=== PATIENT | male | born 1965 | race Caucasian/White ===

== ENCOUNTER 2017-06-30 12:30 | Day surgery (SDC) | payer BC ==
[2017-06-30] MEDS ORDERED: Albuterol/Ipratropium 3.0-0.5 MG/3 ML Neb Soln NEB ONE ×2 (13:30→22:38)
--- NOTE | 2017-06-30 13:31 | EDM.PDOC ---
ED HPI GENERAL MEDICAL PROBLEM - General Chief Complaint: Abdominal Pain Stated Complaint: BACK PAIN, STOMACH PAIN AND BLOATING Time Seen by Provider: 06/30/17 12:58 Source of Information: Reports: Patient History Limitations: Reports: No Limitations - History of Present Illness INITIAL COMMENTS - FREE TEXT/NARRATIVE: 51 y.o.w.m with metabolic syndrome, H/.O COPD, HTNcame to the ed by PC due to worsening abd. pain with distension, worse pain at his RUQ of his abdomen. No Trauma, no prev abdominal surgeries. No N/V/D, dizziness, no ather acute medical issues. BP 158/85 Temp 36.8 RR 18 Pulse ox 98% on RA, Pulse 93 BPM Onset Date: 06/30/17 Onset Time: 04:00 Duration: Hour(s):, Getting Worse, Intermittent Location: Reports: Abdomen (RUQ of abdomen) Quality: Reports: Ache, Burning, Dull, Pressure, Stabbing, Throbbing Severity: Moderate Improves with: Reports: Rest Worsens with: Reports: Movement Context: Reports: Other (obesity) Associated Symptoms: Reports: Shortness of Breath (H/O COPD, refused Tx) Upper Abdominal Pain Score (Numeric/FACES): 6 - Related Data Allergies Allergy/AdvReac Type Severity Reaction Status Date / Time No Known Allergies Allergy Verified 06/30/17 12:50 Home Meds: Home Meds Benazepril HCl [Lotensin] 40 mg PO DAILY 12/02/12 [History] amLODIPine Besylate [Norvasc] 10 mg PO DAILY 12/02/12 [History] Hydrochlorothiazide 12.5 mg PO DAILY 11/29/15 [History] Albuterol Sulfate [Proair Hfa] 2 puff IH Q4H PRN 11/30/15 [History] Aspirin [Halfprin] 81 mg PO DAILY 11/30/15 [History] Multivitamin [Daily Bryan] 1 tab PO DAILY 11/30/15 [History] Fluticasone/Salmeterol [Advair 250-50 Diskus] 1 puff IH BID 30 Days disk.w.dev 12/05/15 [Rx] Furosemide [Lasix] 40 mg PO DAILY 30 Days tablet 12/05/15 [Rx] Metoprolol Succinate 100 mg PO ASDIRECTED 06/30/17 [History] Past Medical History Cardiovascular History: Reports: Hypertension, Other (See Below) Respiratory History: Reports: COPD, Pneumonia, Recurrent, SOB Gastrointestinal History: Reports: Hiatal Hernia Endocrine/Metabolic History: Reports: Obesity/BMI 30+ - Infectious Disease History Infectious Disease History: Reports: Chicken Pox, Measles, Mumps - Past Surgical History GI Surgical History: Reports: Hernia, Abdominal Social & Family History - Family History Family Medical History: Unobtainable - Tobacco Use Smoking Status *Q: Former Smoker Years of Tobacco use: 25 Packs/Tins Daily: 1.5 Used Tobacco, but Quit: Yes Month/Year Tobacco Last Used: mar 2016 Second Hand Smoke Exposure: Yes - Caffeine Use Caffeine Use: Reports: Coffee - Alcohol Use Days Per Week of Alcohol Use: 2 Number of Drinks Per Day: 3 Total Drinks Per Week: 6 - Recreational Drug Use Recreational Drug Use: No ED ROS GENERAL - Review of Systems Review Of Systems: See Below Constitutional: Reports: No Symptoms HEENT: Reports: No Symptoms Respiratory: Reports: Shortness of Breath (now baseline), Wheezing Cardiovascular: Reports: Blood Pressure Problem Endocrine: Reports: No Symptoms GI/Abdominal: Reports: Abdominal Pain (RUQ of abdomen) : Reports: No Symptoms Musculoskeletal: Reports: No Symptoms Skin: Reports: No Symptoms Neurological: Reports: No Symptoms Psychiatric: Reports: No Symptoms Hematologic/Lymphatic: Reports: No Symptoms Immunologic: Reports: No Symptoms ED EXAM, GI/ABD - Physical Exam Exam: See Below Exam Limited By: No Limitations General Appearance: Alert, WD/WN, Mild Distress, Obese (morbid) Eyes: Bilateral: Normal Appearance Ears: Normal External Exam Nose: Normal Inspection Throat/Mouth: Normal Inspection Head: Atraumatic, Normocephalic Neck: Normal Inspection Respiratory/Chest: No Respiratory Distress, Decreased Breath Sounds, Wheezing Cardiovascular: Normal Peripheral Pulses GI/Abdominal Exam: Guarding, Rigid (RUQ of abdomen), Tender (Male) Exam: No Hernia Rectal (Males) Exam: Deferred Back Exam: Normal Inspection Extremities: Normal Inspection Neurological: Alert, Oriented, CN II-XII Intact, Normal Cognition, Normal Gait Psychiatric: Normal Affect, Normal Mood Skin Exam: Warm, Dry, Intact, Normal Color, No Rash Lymphatic: No Adenopathy EKG INTERPRETATION EKG Date: 06/30/17 Time: 13:40 Rhythm: NSR Rate (Beats/Min): 92 [place]: Normal P-Wave: Present (inverted,) QRS: Normal ST-T: Normal QT: Normal Comparison: No Change Course - Vital Signs Text/Narrative:: 51 y.o.w.m with metabolic syndrome, H/.O COPD, HTNcame to the ed by PC due to worsening abd. pain with distension, worse pain at his RUQ of his abdomen. No Trauma, no prev abdominal surgeries. No N/V/D, dizziness, no ather acute medical issues. BP 158/85 Temp 36.8 RR 18 Pulse ox 98% on RA, Pulse 93 BPM PE: Morbid obese 51 Y.O W M with h/o HTN and copd, came to the ed with RUQ abd. pain with pos García sign Imaging: U/S acute cholecystitis, CT abd/pelvis: Cholelithiais, Distended Gall bladder with GBW thickening Labs: WBC 15.6 , BUN 30 Cr 1.6 Trop 1.017 GFR 43 Impression: Acute cholecystitis, COPD, HTN, morbid obesity, chronic legedema, CRI Tx: Refused pain meds, Zosyn 3.375 gm i.v. Pt refuesed a Duoneb 5.49 pm Consultation: Dr. Dillard, Surgeon: Will see pt in the ED Plan: Cholecystectomy Last Recorded V/S: Last Vital Signs Temp 36.7 C 06/30/17 12:58 Pulse 97 06/30/17 16:54 Resp 20 06/30/17 16:54 BP 151/86 H 06/30/17 16:54 Pulse Ox 100 06/30/17 16:54 - Orders/Labs/Meds Orders: Active Orders 24 hr Category Date Time Status Abdomen Ltd [US] Stat Exams 06/30/17 14:34 Taken Abdomen Pelvis w Cont [CT] Stat Exams 06/30/17 15:19 Taken Abdomen Series w Chest 1V [CR] Stat Exams 06/30/17 13:30 Taken INR,PT,PROTHROMBIN TIME [COAG] Stat Lab 06/30/17 14:05 Received PRO B-TYPE NATRIUR PEPT,BNPPRO [CHEM] Stat Lab 06/30/17 14:05 Received UA W/MICROSCOPIC [URIN] Stat Lab 06/30/17 13:56 Ordered Diatrizoate Sirena/Diatrizoate Na [Gastrografin 37%] Med 06/30/17 15:45 Active 30 ml PO . DIRECTED Sodium Chloride 0.9% [Normal Saline] 1,000 ml Med 06/30/17 18:00 Active IV ASDIRECTED Sodium Chloride 0.9% [Saline Flush] Med 06/30/17 17:43 Active 10 ml FLUSH ASDIRECTED PRN Saline Lock Insert [OM.PC] Routine Oth 06/30/17 17:43 Ordered EKG 12 Lead [EK] Routine Ther 06/30/17 13:30 Ordered Medication Orders Diatrizoate Meglum/Diatrizoate Sod (Gastrografin 37%) 30 ml PO . DIRECTED OLIVA Last Admin: 06/30/17 16:09 Dose: 30 ml Sodium Chloride (Normal Saline) 1,000 mls @ 125 mls/hr IV ASDIRECTED OLIVA Last Admin: 06/30/17 17:57 Dose: 125 mls/hr Sodium Chloride (Saline Flush) 10 ml FLUSH ASDIRECTED PRN PRN Reason: Keep Vein Open Last Admin: 06/30/17 15:00 Dose: 10 ml Labs: Laboratory Tests 06/30/17 06/30/17 06/30/17 Range/Units 13:56 14:05 14:05 WBC 14.1 H (4.5-12.0) X10-3/uL RBC 3.99 L (4.30-5.75) x10(6)uL Hgb 12.4 (11.5-15.5) g/dL Hct 35.4 D (30.0-51.3) % MCV 88.9 (80-96) fL MCH 31.2 (27.7-33.6) pg MCHC 35.1 (32.2-35.4) g/dL RDW 12.5 (11.5-15.5) % Plt Count 194 (125-369) X10(3)uL MPV 7.9 (7.4-10.4) fL Add Manual Diff Yes Neutrophils % (Manual) 81 (46-82) % Band Neutrophils % 3 (0-6) % Lymphocytes % (Manual) 10 L (13-37) % Monocytes % (Manual) 6 (4-12) % Sodium 138 (135-145) mmol/L Potassium 3.9 (3.5-5.3) mmol/L Chloride 100 (100-110) mmol/L Carbon Dioxide 28 (21-32) mmol/L BUN 30 H (7-18) mg/dL Creatinine 1.6 H (0.70-1.30) mg/dL Est Cr Clr Drug Dosing 58.83 mL/min Estimated GFR (MDRD) 46 L (>60) BUN/Creatinine Ratio 18.8 (9-20) Glucose 155 H (80-116) mg/dL Lactic Acid (0.4-2.2) mmol/L Calcium 9.0 (8.6-10.2) mg/dL Total Bilirubin 0.4 (0.1-1.3) mg/dL Direct Bilirubin 0.12 (0.10-0.20) mg/dL AST 21 (5-25) IU/L ALT 39 H (12-36) U/L Alkaline Phosphatase 101 (56-112) IU/L Troponin I (<0.017-0.056) ng/mL Total Protein 7.8 (6.0-8.0) g/dL Albumin 3.6 (3.5-5.2) g/dL Amylase 53 (25-115) U/L Urine Color Yellow (YELLOW) Urine Appearance Slightly cloudy (CLEAR) Urine pH 6.0 (5.0-6.5) Ur Specific [place] 1.015 (1.010-1.025) Urine Protein Negative (NEGATIVE) mg/dL Urine Glucose (UA) Normal (NEGATIVE) mg/dL Urine Ketones Negative (NEGATIVE) mg/dL Urine Occult Blood Negative (NEGATIVE) Urine Nitrite Negative (NEGATIVE) Urine Bilirubin Negative (NEGATIVE) Urine Urobilinogen 1 H (NEGATIVE) mg/dL Ur Leukocyte Esterase Negative (NEGATIVE) Urine WBC 0-5 (0) Ur Squamous Epith Cells Few H (NS,R,O) Urine Bacteria Few H (NS) 06/30/17 06/30/17 Range/Units 14:05 14:05 WBC (4.5-12.0) X10-3/uL RBC (4.30-5.75) x10(6)uL Hgb (11.5-15.5) g/dL Hct (30.0-51.3) % MCV (80-96) fL MCH (27.7-33.6) pg MCHC (32.2-35.4) g/dL RDW (11.5-15.5) % Plt Count (125-369) X10(3)uL MPV (7.4-10.4) fL Add Manual Diff Neutrophils % (Manual) (46-82) % Band Neutrophils % (0-6) % Lymphocytes % (Manual) (13-37) % Monocytes % (Manual) (4-12) % Sodium (135-145) mmol/L Potassium (3.5-5.3) mmol/L Chloride (100-110) mmol/L Carbon Dioxide (21-32) mmol/L BUN (7-18) mg/dL Creatinine (0.70-1.30) mg/dL Est Cr Clr Drug Dosing mL/min Estimated GFR (MDRD) (>60) BUN/Creatinine Ratio (9-20) Glucose (80-116) mg/dL Lactic Acid 0.9 (0.4-2.2) mmol/L Calcium (8.6-10.2) mg/dL Total Bilirubin (0.1-1.3) mg/dL Direct Bilirubin (0.10-0.20) mg/dL AST (5-25) IU/L ALT (12-36) U/L Alkaline Phosphatase (56-112) IU/L Troponin I < 0.017 L (<0.017-0.056) ng/mL Total Protein (6.0-8.0) g/dL Albumin (3.5-5.2) g/dL Amylase (25-115) U/L Urine Color (YELLOW) Urine Appearance (CLEAR) Urine pH (5.0-6.5) Ur Specific [place] (1.010-1.025) Urine Protein (NEGATIVE) mg/dL Urine Glucose (UA) (NEGATIVE) mg/dL Urine Ketones (NEGATIVE) mg/dL Urine Occult Blood (NEGATIVE) Urine Nitrite (NEGATIVE) Urine Bilirubin (NEGATIVE) Urine Urobilinogen (NEGATIVE) mg/dL Ur Leukocyte Esterase (NEGATIVE) Urine WBC (0) Ur Squamous Epith Cells (NS,R,O) Urine Bacteria (NS) Meds: Medications Generic Name Dose Route Start Last Admin Trade Name Freq PRN Reason Stop Dose Admin Diatrizoate Meglum/Diatrizoate Sod 30 ml 06/30/17 15:45 06/30/17 16:09 Gastrografin 37% PO 30 ml . DIRECTED OLIVA Administration Sodium Chloride 1,000 mls @ 125 mls/hr 06/30/17 18:00 06/30/17 17:57 Normal Saline IV 125 mls/hr ASDIRECTED OLIVA Administration Sodium Chloride 10 ml 06/30/17 17:43 06/30/17 15:00 Saline Flush FLUSH 10 ml ASDIRECTED PRN Administration Keep Vein Open Discontinued Medications Generic Name Dose Route Start Last Admin Trade Name Freq PRN Reason Stop Dose Admin Albuterol/Ipratropium 3 ml 06/30/17 13:30 06/30/17 13:49 Duoneb 3.0-0.5 Mg/3 Ml NEB 06/30/17 13:31 Not Given ONETIME ONE Albuterol/Ipratropium Confirm 06/30/17 13:33 06/30/17 13:49 Duoneb 3.0-0.5 Mg/3 Ml Administered 06/30/17 13:34 Not Given Dose 3 ml .ROUTE .STK-MED ONE Piperacillin Sod/Tazobactam 50 mls @ 100 mls/hr 06/30/17 17:52 06/30/17 18:03 Sod 3.375 gm/ Sodium Chloride IV 06/30/17 18:21 100 mls/hr ONETIME STA Administration Iopamidol 100 ml 06/30/17 15:32 06/30/17 16:09 Isovue-370 (76%) IV 06/30/17 15:33 100 ml . DIRECTED ONE Administration Departure - Departure Time of Disposition: 19:10 Disposition: Refer to Observation Condition: Fair Clinical Impression: Acute cholecystitis - Discharge Information - My Orders Last 24 Hours: My Active Orders 06/30/17 13:30 Abdomen Series w Chest 1V [CR] Stat EKG 12 Lead [EK] Routine 06/30/17 13:56 UA W/MICROSCOPIC [URIN] Stat 06/30/17 14:05 INR,PT,PROTHROMBIN TIME [COAG] Stat PRO B-TYPE NATRIUR PEPT,BNPPRO [CHEM] Stat 06/30/17 14:34 Abdomen Ltd [US] Stat 06/30/17 15:19 Abdomen Pelvis w Cont [CT] Stat 06/30/17 15:45 Diatrizoate Sirena/Diatrizoate Na [Gastrografin 37%] 30 ml PO . DIRECTED 06/30/17 17:43 Sodium Chloride 0.9% [Saline Flush] 10 ml FLUSH ASDIRECTED PRN Saline Lock Insert [OM.PC] Routine 06/30/17 18:00 Sodium Chloride 0.9% [Normal Saline] 1,000 ml IV ASDIRECTED - Assessment/Plan Last 24 Hours: My Active Orders 06/30/17 13:30 Abdomen Series w Chest 1V [CR] Stat EKG 12 Lead [EK] Routine 06/30/17 13:56 UA W/MICROSCOPIC [URIN] Stat 06/30/17 14:05 INR,PT,PROTHROMBIN TIME [COAG] Stat PRO B-TYPE NATRIUR PEPT,BNPPRO [CHEM] Stat 06/30/17 14:34 Abdomen Ltd [US] Stat 06/30/17 15:19 Abdomen Pelvis w Cont [CT] Stat 06/30/17 15:45 Diatrizoate Sirena/Diatrizoate Na [Gastrografin 37%] 30 ml PO . DIRECTED 06/30/17 17:43 Sodium Chloride 0.9% [Saline Flush] 10 ml FLUSH ASDIRECTED PRN Saline Lock Insert [OM.PC] Routine 06/30/17 18:00 Sodium Chloride 0.9% [Normal Saline] 1,000 ml IV ASDIRECTED
[2017-06-30] MEDS ORDERED: Albuterol/Ipratropium 3.0-0.5 MG/3 ML Neb Soln ONE (13:33)
[2017-06-30] MEDS ORDERED: Iopamidol 755 Mg/ML 100 ML Bottle IV ONE (15:32)
[2017-06-30] MEDS ORDERED: Diatrizoate Meglumine/Diatrizoate Sodium 37% 30 ML Bottle PO SCH (15:45)
[2017-06-30] MEDS ORDERED: Sodium Chloride 0.9% 10 ML Syringe FLUSH PRN ×2 (17:43→19:15)
[2017-06-30] MEDS ORDERED: Piperacillin/Tazobactam 3.375 GM in Sodium Chloride 0.9% 50 ML IV STA (17:52)
[2017-06-30] MEDS ORDERED: Sodium Chloride 0.9% 1,000 ML IV SCH (18:00)
[2017-06-30] MEDS ORDERED: Lactated Ringers 1,000 ML IV SCH (19:15)
[2017-06-30] MEDS ORDERED: Rocuronium 100 MG/10 ML MDV IV ONE (19:41)
[2017-06-30] MEDS ORDERED: fentaNYL 100 MCG/2 ML SDV IV ONE (19:41)
[2017-06-30] MEDS ORDERED: Neostigmine Methylsulfate 10 MG/10 ML MDV IVPUSH ONE (19:41)
[2017-06-30] MEDS ORDERED: Albuterol 8 GM Inhaler INH ONE (19:41)
[2017-06-30] MEDS ORDERED: Glycopyrrolate 0.2 MG/ML 5 ML MDV IV ONE (19:41)
[2017-06-30] MEDS ORDERED: Propofol 200 MG/20 ML SDV IV ONE (19:41)
[2017-06-30] MEDS ORDERED: Metoprolol Tartrate 5 MG/5 ML SDV IV ONE (19:41)
[2017-06-30] MEDS ORDERED: Ondansetron 4 MG/2 ML SDV IVPUSH ONE (19:41)
[2017-06-30] MEDS ORDERED: Succinylcholine 200 MG/10 ML MDV IV ONE (19:41)
[2017-06-30] MEDS ORDERED: Lidocaine 2% 100 MG/5 ML Syringe IVPUSH ONE (19:41)
[2017-06-30] MEDS ORDERED: Lactated Ringers 1,000 ML IV ONE (19:41)
[2017-06-30] MEDS ORDERED: Ketamine 500 mg/10 ML MDV IV ONE (19:41)
--- NOTE | 2017-06-30 19:45 | HP ---
ADMISSION DATE: 06/30/2017 HISTORY: This 51-year-old male presented to the emergency room today with symptoms of right upper quadrant abdominal pain. He says he has developed this morning. He was seen in the walk-in clinic and then came to the emergency room. There was some nausea associated with this but no vomiting. Over the ensuing hours, the patient states the pain has improved although he still has tenderness in the right upper quadrant to palpation. He has not had pain like this before. The patient was evaluated with a CT scan of the abdomen which was interpreted as showing mild gallbladder wall thickening and some stones within the gallbladder. The common bile duct was 6 mm in size. There was no intrahepatic bile ductal dilation. Laboratory studies show a normal liver function tests including a bilirubin of 0.4 and then a normal amylase. His white blood cell count is slightly elevated at 14,100. PAST MEDICAL HISTORY: Shows only previous surgery was umbilical hernia repair. He does carry a diagnoses of hypertension, COPD. CURRENT MEDICATIONS: 1. Albuterol inhaler p.r.n. 2. Advair b.i.d. 3. Lotensin 40 mg a day. 4. Lasix 40 mg a day. 5. Hydrochlorothiazide 12.5 mg a day. 6. Norvasc 10 mg a day. 7. Metoprolol 100 mg a day. 8. He also takes a low-dose aspirin. ALLERGIES: He has no known drug allergies. SOCIAL HISTORY: He is a former smoker stating that he quit about a year and half ago. FAMILY HISTORY: Noncontributory. SOCIAL HISTORY: The patient is currently not . 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 REVIEW OF SYSTEMS: He denies any recent bad cough, cold, or sore throat symptoms. He has had some symptoms of heartburn intermittently. No chest pain or palpitations. He states his breathing has been stable recently with no significant episodes of shortness of breath. He does admit to some lower extremity swelling, which has been a consistent problem for him in the recent past. PHYSICAL EXAMINATION: VITAL SIGNS: Temperature 98.1, pulse 97, blood pressure is 151/86, weight is 310 pounds. GENERAL: The patient is an alert adult male. He is in no acute distress. HEENT: Head is normocephalic. No scleral icterus. Throat is clear. NECK: Supple. No cervical masses. HEART: Regular without murmur. LUNGS: Clear. No wheezing is noted. ABDOMEN: The patient's abdomen is rounded, but soft. There is tenderness to direct palpation to a moderate degree in the right upper quadrant. I do not feel any abdominal masses, hepatic or splenic enlargement. The surgical scar near the umbilicus is well healed. No guarding is noted. EXTREMITIES: Show a 2+ ankle edema with induration of the calf muscles bilaterally. NEUROLOGIC: The patient is alert. Does not demonstrate any lateralizing weakness or gross cognitive deficit. IMPRESSION: 1. Acute cholecystitis with cholelithiasis. 2. COPD. 3. Hypertension. 4. Obesity. RECOMMENDATIONS: Advised laparoscopic cholecystectomy reviewing with the patient the possibility that this may have to be converted to an open procedure. I reviewed with him the indications, options, risks and possible complications. He appears to understand and agrees to proceed. He did agree to proceed with this tonight. /[id number] NICKY/JIMBO
[2017-06-30] MEDS ORDERED: Bupivacaine 0.5%/EPINEPHrine 1:200,000 50 ML MDV INJECT ONE (20:06)
[2017-06-30] MEDS ORDERED: Morphine 2 MG/ML Syringe IVPUSH PRN (21:38)
[2017-06-30] MEDS ORDERED: Ondansetron 4 MG/2 ML SDV IVPUSH PRN (21:38)
[2017-06-30] MEDS ORDERED: Acetaminophen/HYDROcodone 325-5 MG Tab PO PRN ×2 (21:38)
--- NOTE | 2017-06-30 21:38 | PCM.OPNOTE ---
- General Post-Op/Procedure Note Date of Surgery/Procedure: 06/30/17 Operative Procedure(s): Laproscopic Cholecystectomy Findings: Enlarged, Acutely inflamed gallbladder containing multiple dark faceted stones Pre Op Diagnosis: Acute cholecystitis with cholelithiasis Post-Op Diagnosis: Same Anesthesia Technique: General ET Tube Primary Surgeon: Donovan Dillard Pathology: Gallbladder with stones Output, Urine Amount: 0 EBL in mLs: 25 Complications: None Condition: Good
[2017-06-30] MEDS ORDERED: Albuterol 8 GM Inhaler INH PRN (21:45)
[2017-06-30] MEDS: Lactated Ringers 1,000 ML IV SCH (22:58)
[2017-07-01] MEDS: Lactated Ringers 1,000 ML IV SCH (05:50)
[2017-07-01] MEDS: Piperacillin/Tazobactam 3.375 GM in Sodium Chloride 0.9% 50 ML IV SCH ×4 (05:53→12:40)
[2017-07-01] MEDS ORDERED: Formoterol/Mometasone 200-5 MCG 8.8 GM Inhaler IH SCH (07:00)
[2017-07-01] MEDS ORDERED: Non-Formulary Medication 1 Each (Fluticasone/Salmeterol [Advair 250-50 Diskus] 1 PUFF) IH SCH (09:00)
[2017-07-01] MEDS ORDERED: Potassium Chloride 20 MEQ Tab.ER PO SCH (09:00)
[2017-07-01] MEDS ORDERED: Furosemide 40 MG Tab PO SCH (09:00)
[2017-07-01] MEDS ORDERED: Hydrochlorothiazide 12.5 MG Cap PO SCH (09:00)
[2017-07-01] MEDS ORDERED: amLODIPine 10 MG Tab PO SCH (09:00)
[2017-07-01] MEDS ORDERED: Metoprolol Succinate 100 MG Tab.ER PO SCH (09:00)
--- NOTE | 2017-07-01 09:32 | OR ---
DATE OF OPERATION: 06/30/2017 SURGEON: Donovan Dillard MD PREOPERATIVE DIAGNOSES: Acute cholecystitis with cholelithiasis. POSTOPERATIVE DIAGNOSES: Acute cholecystitis with cholelithiasis. OPERATION PERFORMED: Laparoscopic cholecystectomy. INDICATIONS FOR SURGERY: This 51-year-old male presented to the hospital with severe right upper quadrant abdominal pain. Workup identified cholecystitis with cholelithiasis, and he comes for a cholecystectomy. FINDINGS: The patient's gallbladder is acutely inflamed. It is markedly dilated, and there are extensive omental adhesions to its undersurface. The adjacent liver appeared normal. The gallbladder did contain multiple dark faceted stones. PROCEDURE IN DETAIL: The patient was taken to the operating room. He was given general endotracheal anesthesia, and the abdomen was sterilely prepped and draped. A supraumbilical stab wound incision was made. Through this, a Veress needle was inserted, and pneumoperitoneum via this needle to a pressure of 15 mmHg was achieved with carbon dioxide. The Veress needle was then replaced with a 12-mm trocar into which the 5-mm variable-angled laparoscopic camera was inserted. A 5-mm trocar was placed in the subxiphoid midline, and two more 5-mm trocars were placed in the right abdomen. All trocar sites were infiltrated with Marcaine prior to incision. Intra-abdominal inspection was carried out, and attention was turned to the gallbladder. The gallbladder was positioned so that it could be aspirated, and the aspirating needle was then advanced through the subxiphoid trocar into the gallbladder with aspiration of the bile to partially decompress the gallbladder. The gallbladder could then be secured with the grasping forceps, and carefully, the omental fatty adhesions to the undersurface of the gallbladder were taken down with blunt and cautery dissection. As this dissection continued, the lower part of the gallbladder was able to be visualized, and eventually, the cystic duct was exposed. It was isolated, and additional dissection in the triangle of Calot identified the cystic artery and another small vascular branch, which were doubly clipped and divided near the gallbladder. Once the triangle of Calot had been cleared and the cystic ducts had been clearly identified, it was milked and then doubly clipped and divided near the gallbladder, with great care being used to avoid any possible injury or compromise to the common bile duct. The gallbladder was then dissected free from the undersurface of the liver using the hook cautery device. Once the gallbladder was freed, it was extracted through the umbilical trocar site. This did require opening the gallbladder extra abdominally and extracting bile and multiple stones, but eventually, the gallbladder was decompressed enough to be extracted through this trocar site. Re-inspection of the gallbladder bed was performed, and good hemostasis was assured. After copious irrigation of the operative region had been performed, and inspection showed no sign of any bleeding or complications, the trocars were removed under direct visualization, and the pneumoperitoneum was evacuated. The fascia of the umbilical trocar site was closed with a [id number] 0 Vicryl suture. Wounds were irrigated with Betadine and saline solution. Skin incisions were approximated with interrupted 4-0 Vicryl in a subcuticular stitch. Steri-Strips and benzoin were applied. Antibiotic ointment and sterile dressings were placed. CONDITION: The patient was awakened, extubated, and taken from the operating room in satisfactory condition. ESTIMATED BLOOD LOSS: 25 mL. COMPLICATIONS: None. PROGNOSIS: Good. /[id number] NICKY/JIMBO
--- NOTE | 2017-07-01 10:22 | PCM.SURGPN ---
- General Info Date of Service: 07/01/17 Date of Surgery/Procedure: 06/30/17 POD#: 1 Post-Op Diagnosis: Acute cholecystitis with stones Functional Status: Reports: Pain Controlled - Review of Systems General: Denies: Fever, Chills Pulmonary: Reports: Shortness of Breath (slight with ambulation) Cardiovascular: Denies: Chest Pain - Patient Data Vitals - Most Recent: Last Vital Signs Temp 98.2 F 07/01/17 01:00 Pulse 110 H 07/01/17 04:00 Resp 18 07/01/17 04:00 BP 127/67 07/01/17 04:00 Pulse Ox 97 07/01/17 04:10 Weight - Most Recent: 310 lb I&O - Last 24 Hours: Intake & Output 06/30/17 07/01/17 07/01/17 22:59 06:59 14:59 Intake Total 794 400 Output Total 0 500 Balance 0 294 400 Lab Results Last 24 Hrs: Laboratory Results - last 24 hr 06/30/17 06/30/17 06/30/17 Range/Units 13:56 14:05 14:05 WBC 14.1 H (4.5-12.0) X10-3/uL RBC 3.99 L (4.30-5.75) x10(6)uL Hgb 12.4 (11.5-15.5) g/dL Hct 35.4 D (30.0-51.3) % MCV 88.9 (80-96) fL MCH 31.2 (27.7-33.6) pg MCHC 35.1 (32.2-35.4) g/dL RDW 12.5 (11.5-15.5) % Plt Count 194 (125-369) X10(3)uL MPV 7.9 (7.4-10.4) fL Add Manual Diff Yes Neutrophils % (Manual) 81 (46-82) % Band Neutrophils % 3 (0-6) % Lymphocytes % (Manual) 10 L (13-37) % Monocytes % (Manual) 6 (4-12) % PT (8.7-11.1) INR (0.89-1.13) Sodium 138 (135-145) mmol/L Potassium 3.9 (3.5-5.3) mmol/L Chloride 100 (100-110) mmol/L Carbon Dioxide 28 (21-32) mmol/L BUN 30 H (7-18) mg/dL Creatinine 1.6 H (0.70-1.30) mg/dL Est Cr Clr Drug Dosing 58.83 mL/min Estimated GFR (MDRD) 46 L (>60) BUN/Creatinine Ratio 18.8 (9-20) Glucose 155 H (80-116) mg/dL Lactic Acid (0.4-2.2) mmol/L Calcium 9.0 (8.6-10.2) mg/dL Total Bilirubin 0.4 (0.1-1.3) mg/dL Direct Bilirubin 0.12 (0.10-0.20) mg/dL AST 21 (5-25) IU/L ALT 39 H (12-36) U/L Alkaline Phosphatase 101 (56-112) IU/L Troponin I (<0.017-0.056) ng/mL NT-Pro-B Natriuret Pep (<=125) pg/mL Total Protein 7.8 (6.0-8.0) g/dL Albumin 3.6 (3.5-5.2) g/dL Amylase 53 (25-115) U/L Urine Color Yellow (YELLOW) Urine Appearance Slightly cloudy (CLEAR) Urine pH 6.0 (5.0-6.5) Ur Specific [place] 1.015 (1.010-1.025) Urine Protein Negative (NEGATIVE) mg/dL Urine Glucose (UA) Normal (NEGATIVE) mg/dL Urine Ketones Negative (NEGATIVE) mg/dL Urine Occult Blood Negative (NEGATIVE) Urine Nitrite Negative (NEGATIVE) Urine Bilirubin Negative (NEGATIVE) Urine Urobilinogen 1 H (NEGATIVE) mg/dL Ur Leukocyte Esterase Negative (NEGATIVE) Urine WBC 0-5 (0) Ur Squamous Epith Cells Few H (NS,R,O) Urine Bacteria Few H (NS) 06/30/17 06/30/17 06/30/17 Range/Units 14:05 14:05 14:05 WBC (4.5-12.0) X10-3/uL RBC (4.30-5.75) x10(6)uL Hgb (11.5-15.5) g/dL Hct (30.0-51.3) % MCV (80-96) fL MCH (27.7-33.6) pg MCHC (32.2-35.4) g/dL RDW (11.5-15.5) % Plt Count (125-369) X10(3)uL MPV (7.4-10.4) fL Add Manual Diff Neutrophils % (Manual) (46-82) % Band Neutrophils % (0-6) % Lymphocytes % (Manual) (13-37) % Monocytes % (Manual) (4-12) % PT (8.7-11.1) INR (0.89-1.13) Sodium (135-145) mmol/L Potassium (3.5-5.3) mmol/L Chloride (100-110) mmol/L Carbon Dioxide (21-32) mmol/L BUN (7-18) mg/dL Creatinine (0.70-1.30) mg/dL Est Cr Clr Drug Dosing mL/min Estimated GFR (MDRD) (>60) BUN/Creatinine Ratio (9-20) Glucose (80-116) mg/dL Lactic Acid 0.9 (0.4-2.2) mmol/L Calcium (8.6-10.2) mg/dL Total Bilirubin (0.1-1.3) mg/dL Direct Bilirubin (0.10-0.20) mg/dL AST (5-25) IU/L ALT (12-36) U/L Alkaline Phosphatase (56-112) IU/L Troponin I < 0.017 L (<0.017-0.056) ng/mL NT-Pro-B Natriuret Pep 109 (<=125) pg/mL Total Protein (6.0-8.0) g/dL Albumin (3.5-5.2) g/dL Amylase (25-115) U/L Urine Color (YELLOW) Urine Appearance (CLEAR) Urine pH (5.0-6.5) Ur Specific [place] (1.010-1.025) Urine Protein (NEGATIVE) mg/dL Urine Glucose (UA) (NEGATIVE) mg/dL Urine Ketones (NEGATIVE) mg/dL Urine Occult Blood (NEGATIVE) Urine Nitrite (NEGATIVE) Urine Bilirubin (NEGATIVE) Urine Urobilinogen (NEGATIVE) mg/dL Ur Leukocyte Esterase (NEGATIVE) Urine WBC (0) Ur Squamous Epith Cells (NS,R,O) Urine Bacteria (NS) 04/08/18 Range/Units 14:05 WBC (4.5-12.0) X10-3/uL RBC (4.30-5.75) x10(6)uL Hgb (11.5-15.5) g/dL Hct (30.0-51.3) % MCV (80-96) fL MCH (27.7-33.6) pg MCHC (32.2-35.4) g/dL RDW (11.5-15.5) % Plt Count (125-369) X10(3)uL MPV (7.4-10.4) fL Add Manual Diff Neutrophils % (Manual) (46-82) % Band Neutrophils % (0-6) % Lymphocytes % (Manual) (13-37) % Monocytes % (Manual) (4-12) % PT 10.4 (8.7-11.1) INR 1.03 (0.89-1.13) Sodium (135-145) mmol/L Potassium (3.5-5.3) mmol/L Chloride (100-110) mmol/L Carbon Dioxide (21-32) mmol/L BUN (7-18) mg/dL Creatinine (0.70-1.30) mg/dL Est Cr Clr Drug Dosing mL/min Estimated GFR (MDRD) (>60) BUN/Creatinine Ratio (9-20) Glucose (80-116) mg/dL Lactic Acid (0.4-2.2) mmol/L Calcium (8.6-10.2) mg/dL Total Bilirubin (0.1-1.3) mg/dL Direct Bilirubin (0.10-0.20) mg/dL AST (5-25) IU/L ALT (12-36) U/L Alkaline Phosphatase (56-112) IU/L Troponin I (<0.017-0.056) ng/mL NT-Pro-B Natriuret Pep (<=125) pg/mL Total Protein (6.0-8.0) g/dL Albumin (3.5-5.2) g/dL Amylase (25-115) U/L Urine Color (YELLOW) Urine Appearance (CLEAR) Urine pH (5.0-6.5) Ur Specific [place] (1.010-1.025) Urine Protein (NEGATIVE) mg/dL Urine Glucose (UA) (NEGATIVE) mg/dL Urine Ketones (NEGATIVE) mg/dL Urine Occult Blood (NEGATIVE) Urine Nitrite (NEGATIVE) Urine Bilirubin (NEGATIVE) Urine Urobilinogen (NEGATIVE) mg/dL Ur Leukocyte Esterase (NEGATIVE) Urine WBC (0) Ur Squamous Epith Cells (NS,R,O) Urine Bacteria (NS) Med Orders - Current: Current Medications Hydrocodone Bitart/Acetaminophen ([place] 325-5 Mg) 1 tab PO Q4H PRN PRN Reason: Pain (mild 1-3) Hydrocodone Bitart/Acetaminophen ([place] 325-5 Mg) 2 tab PO Q4H PRN PRN Reason: Pain (moderate 4-6) Albuterol (Ventolin Hfa) 0 gm INH Q4H PRN PRN Reason: Shortness of Breath Amlodipine Besylate (Norvasc) 10 mg PO DAILY [facility] Benazepril HCl (Lotensin) 40 mg PO DAILY [facility] Diatrizoate Meglum/Diatrizoate Sod (Gastrografin 37%) 30 ml PO . DIRECTED [facility] Last Admin: 06/30/17 16:09 Dose: 30 ml Furosemide (Lasix) 40 mg PO DAILY [facility] Hydrochlorothiazide (Hydrochlorothiazide) 12.5 mg PO DAILY [facility] Sodium Chloride (Normal Saline) 1,000 mls @ 125 mls/hr IV ASDIRECTED [facility] Last Admin: 06/30/17 17:57 Dose: 125 mls/hr Lactated Ringer's (Ringers, Lactated) 1,000 mls @ 125 mls/hr IV ASDIRECTED [facility] Lactated Ringer's (Ringers, Lactated) 1,000 mls @ 100 mls/hr IV ASDIRECTED [facility] Last Admin: 07/01/17 05:50 Dose: 100 mls/hr Piperacillin Sod/Tazobactam (Sod 3.375 gm/ Sodium Chloride) 50 mls @ 100 mls/ hr IV Q6H [facility] Stop: 07/01/17 12:29 Last Admin: 07/01/17 05:53 Dose: 100 mls/hr Metoprolol Succinate (Toprol Xl) 100 mg PO DAILY [facility] Mometasone Furoate/Formoterol Fumar (Dulera 200-5 Mcg) 2 puff IH BIDRT [facility] Last Admin: 07/01/17 06:39 Dose: Not Given Morphine Sulfate (Morphine) 2 mg IVPUSH Q1H PRN PRN Reason: Pain (severe 7-10) Ondansetron HCl (Zofran) 4 mg IVPUSH Q6H PRN PRN Reason: Nausea/Vomiting Sodium Chloride (Saline Flush) 10 ml FLUSH ASDIRECTED PRN PRN Reason: Keep Vein Open Last Admin: 06/30/17 15:00 Dose: 10 ml Sodium Chloride (Saline Flush) 10 ml FLUSH ASDIRECTED PRN PRN Reason: Keep Vein Open Discontinued Medications Albuterol/Ipratropium (Duoneb 3.0-0.5 Mg/3 Ml) 3 ml NEB ONETIME ONE Stop: 06/30/17 13:31 Last Admin: 06/30/17 13:49 Dose: Not Given Albuterol/Ipratropium (Duoneb 3.0-0.5 Mg/3 Ml) Confirm Administered Dose 3 ml .ROUTE .STK-MED ONE Stop: 06/30/17 13:34 Last Admin: 06/30/17 13:49 Dose: Not Given Albuterol/Ipratropium (Duoneb 3.0-0.5 Mg/3 Ml) 3 ml NEB ONETIME ONE Stop: 06/30/17 22:39 Last Admin: 06/30/17 22:57 Dose: 3 ml Bupivacaine HCl/Epinephrine Bitart (Marcaine 0.5%/Epinephrine 1:200,000) 20 ml INJECT .STK-MED ONE Stop: 06/30/17 20:07 Last Admin: 06/30/17 20:06 Dose: 20 ml Piperacillin Sod/Tazobactam (Sod 3.375 gm/ Sodium Chloride) 50 mls @ 100 mls/ hr IV ONETIME STA Stop: 06/30/17 18:21 Last Admin: 06/30/17 18:03 Dose: 100 mls/hr Iopamidol (Isovue-370 (76%)) 100 ml IV . DIRECTED ONE Stop: 06/30/17 15:33 Last Admin: 06/30/17 16:09 Dose: 100 ml Piperacillin Sod/Tazobactam Sod (Zosyn) Confirm Administered Dose 3.375 gm .ROUTE .STK-MED ONE Stop: 06/30/17 23:51 Last Admin: 06/30/17 23:59 Dose: Not Given - Exam Wound/Incisions: Healing Well. No: Erythema General: Alert, Oriented Lungs: Crackles (few in bases) GI/Abdominal Exam: Soft Extremities: Pedal Edema (as per his usual state). No: Leg Pain Psy/Mental Status: Alert, Normal Affect - Problem List Review Problem List Initiated/Reviewed/Updated: Yes - My Orders Last 24 Hours: Active Orders 24 hr Category Date Time Status Patient Status [ADT] Routine ADT 06/30/17 21:38 Active Ambulate [RC] ASDIRECTED Care 06/30/17 21:38 Active Antiembolic Devices [RC] .Routine Care 06/30/17 21:43 Active Intake and Output [RC] 06,14,22 Care 06/30/17 21:39 Active Oxygen Therapy [RC] PRN Care 06/30/17 21:38 Active RT Aerosol Therapy [RC] ASDIRECTED Care 06/30/17 22:38 Active RT Incentive Spirometry [RC] Q1HWA Care 06/30/17 21:38 Active VTE/DVT Education [RC] Click to Edit Care 06/30/17 21:43 Active Vital Signs [RC] PER UNIT ROUTINE Care 06/30/17 21:38 Active Regular Diet [DIET] Diet 07/01/17 Breakfast Ordered Abdomen Ltd [US] Stat Exams 06/30/17 14:34 Taken Abdomen Pelvis w Cont [CT] Stat Exams 06/30/17 15:19 Taken Abdomen Series w Chest 1V [CR] Stat Exams 06/30/17 13:30 Taken UA W/MICROSCOPIC [URIN] Stat Lab 06/30/17 13:56 Ordered Acetaminophen/HYDROcodone [[place] 325-5 MG] Med 06/30/17 21:38 Active 1 tab PO Q4H PRN Acetaminophen/HYDROcodone [[place] 325-5 MG] Med 06/30/17 21:38 Active 2 tab PO Q4H PRN Albuterol [Ventolin HFA] Med 06/30/17 21:45 Active 0 gm INH Q4H PRN Benazepril [Lotensin] Med 07/01/17 09:00 Active 40 mg PO DAILY Diatrizoate Sirena/Diatrizoate Na [Gastrografin 37%] Med 06/30/17 15:45 Active 30 ml PO . DIRECTED Furosemide [Lasix] Med 07/01/17 09:00 Active 40 mg PO DAILY Hydrochlorothiazide Med 07/01/17 09:00 Active 12.5 mg PO DAILY Lactated Ringers [Ringers, Lactated] 1,000 ml Med 06/30/17 19:15 Active IV ASDIRECTED Lactated Ringers [Ringers, Lactated] 1,000 ml Med 06/30/17 21:45 Active IV ASDIRECTED Metoprolol Succinate [Toprol XL] Med 07/01/17 09:00 Active 100 mg PO DAILY Mometasone/Formoterol [Dulera 200-5 MCG] Med 07/01/17 07:00 Active 2 puff IH BIDRT Morphine Med 06/30/17 21:38 Active 2 mg IVPUSH Q1H PRN Ondansetron [Zofran] Med 06/30/17 21:38 Active 4 mg IVPUSH Q6H PRN Piperacillin/Tazobactam [Zosyn] 3.375 gm Med 07/01/17 00:00 Active Sodium Chloride 0.9% [Normal Saline] 50 ml IV Q6H Sodium Chloride 0.9% [Normal Saline] 1,000 ml Med 06/30/17 18:00 Active IV ASDIRECTED Sodium Chloride 0.9% [Saline Flush] Med 06/30/17 17:43 Active 10 ml FLUSH ASDIRECTED PRN Sodium Chloride 0.9% [Saline Flush] Med 06/30/17 19:15 Active 10 ml FLUSH ASDIRECTED PRN DVT/VTE Prophylaxis Reflex [OM.PC] Per Unit Routine Oth 06/30/17 21:43 Ordered Peripheral IV Insertion Adult [OM.PC] Routine Oth 06/30/17 19:15 Ordered Saline Lock Insert [OM.PC] Routine Oth 06/30/17 17:43 Ordered Sequential Compression Device [OM.PC] Routine Oth 06/30/17 19:15 Ordered Sequential Compression Device [OM.PC] Routine Oth 06/30/17 21:38 Ordered Resuscitation Status Routine Resus Stat 06/30/17 19:15 Ordered EKG 12 Lead [EK] Routine Ther 06/30/17 13:30 Ordered Medication Orders Hydrocodone Bitart/Acetaminophen ([place] 325-5 Mg) 1 tab PO Q4H PRN PRN Reason: Pain (mild 1-3) Hydrocodone Bitart/Acetaminophen ([place] 325-5 Mg) 2 tab PO Q4H PRN PRN Reason: Pain (moderate 4-6) Albuterol (Ventolin Hfa) 0 gm INH Q4H PRN PRN Reason: Shortness of Breath Amlodipine Besylate (Norvasc) 10 mg PO DAILY [facility] Benazepril HCl (Lotensin) 40 mg PO DAILY [facility] Diatrizoate Meglum/Diatrizoate Sod (Gastrografin 37%) 30 ml PO . DIRECTED [facility] Last Admin: 06/30/17 16:09 Dose: 30 ml Furosemide (Lasix) 40 mg PO DAILY [facility] Hydrochlorothiazide (Hydrochlorothiazide) 12.5 mg PO DAILY [facility] Sodium Chloride (Normal Saline) 1,000 mls @ 125 mls/hr IV ASDIRECTED [facility] Last Admin: 06/30/17 17:57 Dose: 125 mls/hr Lactated Ringer's (Ringers, Lactated) 1,000 mls @ 125 mls/hr IV ASDIRECTED [facility] Lactated Ringer's (Ringers, Lactated) 1,000 mls @ 100 mls/hr IV ASDIRECTED [facility] Last Admin: 07/01/17 05:50 Dose: 100 mls/hr Infusion: 07/01/17 05:50 Dose: 100 mls/hr Admin: 06/30/17 22:58 Dose: 100 mls/hr Piperacillin Sod/Tazobactam (Sod 3.375 gm/ Sodium Chloride) 50 mls @ 100 mls/ hr IV Q6H [facility] Stop: 07/01/17 12:29 Last Admin: 07/01/17 05:53 Dose: 100 mls/hr Admin: 07/01/17 00:00 Dose: 100 mls/hr Metoprolol Succinate (Toprol Xl) 100 mg PO DAILY [facility] Mometasone Furoate/Formoterol Fumar (Dulera 200-5 Mcg) 2 puff IH BIDRT [facility] Last Admin: 07/01/17 06:39 Dose: Not Given Morphine Sulfate (Morphine) 2 mg IVPUSH Q1H PRN PRN Reason: Pain (severe 7-10) Ondansetron HCl (Zofran) 4 mg IVPUSH Q6H PRN PRN Reason: Nausea/Vomiting Sodium Chloride (Saline Flush) 10 ml FLUSH ASDIRECTED PRN PRN Reason: Keep Vein Open Last Admin: 06/30/17 15:00 Dose: 10 ml Sodium Chloride (Saline Flush) 10 ml FLUSH ASDIRECTED PRN PRN Reason: Keep Vein Open - Assessment Assessment (Free Text/Narrative):: POD #1 Lap osvaldo for acute choleystitis Stable - Plan Plan (Free Text/Narrative):: Discharge on usual home meds Rx Hydrocodone for pain F/U in 4 days in clinic No heavy lifting for 2 weeks
[2017-07-01] MEDS ORDERED: Furosemide 80 MG Tab PO SCH (10:30)
[2017-07-01 12:46] VITALS: BP 142/84
--- NOTE | 2017-07-01 13:22 | CR ---
INDICATION: Short of breath, abdominal pain. ABDOMEN SERIES WITH CHEST: CHEST: PA view of the chest 06/30/2017, compared with 06/28/2016, revealed lateral pleural thickening again present bilaterally and perhaps slightly increased compared with the previous examination, compatible with pleural fibrosis. Most definite area of increased thickening is seen in the upper lateral pleural space on the left. Patchy infiltration is suggested in the suprahilar area on the right, with heavy markings scattered about the lungs bilaterally. Findings may be on the basis of pulmonary fibrosis only, but make it difficult to exclude areas of patchy bronchopneumonia, especially suprahilar on the right. No gross consolidating pneumonia or definite effusion was seen. The heart appeared enlarged. It was not well delineated, however, due to relatively poor inspiration. No free air is noted under the hemidiaphragm leaves. IMPRESSION: No definite acute process. ABDOMEN: Six images of the abdomen were obtained in supine and upright projections, 06/30/2017. No comparison study was available. A few scattered air-fluid levels are noted in the colon with relatively minimal distention. No distention of more proximal bowel was seen. The appearance may be on the basis of a process such as gastroenteritis and should be correlated clinically. A distal colonic obstructive process that is early, of mechanical nature, is difficult to entirely exclude. Follow-up may be warranted, therefore. The possibility of a distal colonic obstruction is made somewhat more likely due to the lack of gas and stool in the rectum. This may be an incidental finding, however. No definite organomegaly or mass lesions could be identified. No pathologic calcifications were seen. IMPRESSION: There are some scattered air-fluid levels which appear to be mostly in the colon. The possibility of a paralytic ileus is felt to be most likely of minimal degree or possibly gastroenteritis. A distal colonic obstruction, however, cannot be excluded, and follow-up may be warranted therefore. MTDD
== END 2017-07-01 15:00 | disposition home or self-care (01) ==
LOC: FB.ED 12:30 → FB.SDS 18:45 → FB.MS 22:29 → FB.SDS 07-01 15:00
PROVIDERS: ATTEND Surgery
DX: K80.10 Calculus of gallbladder with chronic cholecystitis without obstruction (principal); I10 Essential (primary) hypertension; J44.9 Chronic obstructive pulmonary disease, unspecified; E66.9 Obesity, unspecified; G47.30 Sleep apnea, unspecified; Z87.891 Personal history of nicotine dependence; Z79.82 Long term (current) use of aspirin
CPT/HCPCS: 36415; 47562; 74022; 74177; 76705; 80048; 80076; 81001; 82150; 83605; 83880; 84484; 85025; 85610; 88304; 93005; 94640; 96365; 99285; A9270; J0330; J2405; J2543; J2704; J2710; J3010; J7040; J7050; J7120; J7620; Q9967; J3490

== ENCOUNTER 2024-05-25 12:00 | Inpatient (IN) | payer OTHER ==
[2024-05-25] MEDS ORDERED: Ondansetron 4 MG/2 ML SDV IV PRN (22:59)
[2024-05-25] MEDS ORDERED: Morphine 2 MG/ML SYRINGE IVPUSH PRN (22:59)
[2024-05-25] MEDS ORDERED: 50% Dextrose in Water 50 ML Syringe IVPUSH PRN (22:59)
[2024-05-25] MEDS ORDERED: Glucagon,Human Recombinant 1 MG Vial IM PRN (22:59)
[2024-05-25] MEDS ORDERED: Enoxaparin 30 MG/0.3 ML Syringe SUBCUT SCH (23:00)
[2024-05-25] MEDS: Sodium Chloride 0.9% 10 ML Syringe FLUSH PRN (23:15)
[2024-05-25] MEDS: Enoxaparin 40 MG/0.4 ML Syringe SUBCUT SCH (23:45)
[2024-05-26] MEDS: methylPREDNISolone Sodium Succinate 125 MG/2 ML SDV IVPUSH SCH (01:53)
[2024-05-26] MEDS: Albuterol/Ipratropium 3.0-0.5 MG/3 ML Neb Soln NEB SCH (06:15)
[2024-05-26 06:50] LABS: HEMATOCRIT 55.3 % (38.3-50.1); HEMOGLOBIN 17.8 g/dL (12.9-17.7); MEAN CORPUSCULAR HEMOGLOBIN 30.9 pg (27.0-33.3); MEAN CORPUSCULAR HGB CONC 32.1 g/dL (28.7-35.3); MEAN CORPUSCULAR VOLUME 96.1 fL (80.8-98.7); MEAN PLATELET VOLUME 9.5 fL (6.7-11.0); PLATELET COUNT,PLT 125 x10(3)uL (117-477); RED BLOOD CELL COUNT 5.76 x10(6)uL (3.90-5.90); RED CELL DISTRIBUTION WIDTH 16.8 % (12.4-15.0); WHITE BLOOD CELL COUNT,WBC 10.5 x10-3/uL (3.2-10.1)
[2024-05-26 07:00] LABS: A/G RATIO 0.7; ALANINE AMINOTRANSFERASE,ALT 27 U/L (12-36); ALBUMIN 3.2 g/dL (3.5-5.2); ALKALINE PHOSPHATASE 161 IU/L (56-112); ASPARTATE AMNIOTRANSFERASE,AST 15 IU/L (5-25); BILIRUBIN TOTAL 0.7 mg/dL (0.1-1.3); BLOOD UREA NITROGEN,BUN 28 mg/dL (7-18); CARBON DIOXIDE,CO2 38 mmol/L (21-32); CHLORIDE,CL 102 mmol/L (100-110); EST CRCL DRUG DOSING (CG) 40.75 mL/min; ESTIMATED GFR 38 mL/min (>60); GLUCOSE RANDOM 190 mg/dL (80-116); POTASSIUM,K 5.4 mmol/L (3.5-5.3); PROTEIN TOTAL,TP 7.9 g/dL (6.0-8.0); SODIUM,NA 141 mmol/L (135-145)
[2024-05-26 07:28] LABS: LYMPHOCYTES PERCENT MAN 3 % (13-37); SEG NEUTROPHILS PERCENT MAN 97 % (46-82)
[2024-05-26 07:30] LABS: ANISOCYTOSIS FEW
[2024-05-26] MEDS: Insulin Lispro 100 Unit/ML 3 ML KwikPen SUBCUT SCH (09:03)
[2024-05-26] MEDS ORDERED: Pantoprazole 40 MG Tab.CR PO PRN (11:36)
[2024-05-26] MEDS: Tiotropium BR/Olodaterol HCL 4 GM Inhalation Spray 2.5mcg/1 dose; 10 doses INH SCH (13:41)
[2024-05-26] MEDS: Aspirin 81 MG Tab.EC PO SCH (13:41)
[2024-05-26] MEDS: Cholecalciferol (Vitamin D3) 25 MCG Tab PO SCH (13:41)
[2024-05-26] MEDS: Metoprolol Succinate 100 MG Tab.ER PO SCH (13:44)
[2024-05-27] MEDS: Spironolactone 50 MG Tab PO SCH (08:01)
[2024-05-27] MEDS: Furosemide 40 MG Tab PO SCH (08:05)
[2024-05-27 10:05] LABS: A/G RATIO 0.7; ALANINE AMINOTRANSFERASE,ALT 25 U/L (12-36); ALBUMIN 3.1 g/dL (3.5-5.2); ALKALINE PHOSPHATASE 143 IU/L (56-112); ASPARTATE AMNIOTRANSFERASE,AST 23 IU/L (5-25); BILIRUBIN TOTAL 0.8 mg/dL (0.1-1.3); BLOOD UREA NITROGEN,BUN 49 mg/dL (7-18); BUN/CREATININE RATIO 21.3 (9-20); CALCIUM 8.7 mg/dL (8.6-10.2); CARBON DIOXIDE,CO2 39 mmol/L (21-32); CHLORIDE,CL 98 mmol/L (100-110); EST CRCL DRUG DOSING (CG) 35.44 mL/min; ESTIMATED GFR 32 mL/min (>60); GLUCOSE RANDOM 185 mg/dL (80-116); PROTEIN TOTAL,TP 7.5 g/dL (6.0-8.0); SODIUM,NA 136 mmol/L (135-145)
[2024-05-27 10:06] LABS: HEMATOCRIT 53.3 % (38.3-50.1); HEMOGLOBIN 16.8 g/dL (12.9-17.7); MEAN CORPUSCULAR HEMOGLOBIN 30.6 pg (27.0-33.3); MEAN CORPUSCULAR HGB CONC 31.6 g/dL (28.7-35.3); MEAN CORPUSCULAR VOLUME 96.9 fL (80.8-98.7); MEAN PLATELET VOLUME 9.1 fL (6.7-11.0); PLATELET COUNT,PLT 124 x10(3)uL (117-477); RED CELL DISTRIBUTION WIDTH 16.8 % (12.4-15.0); WHITE BLOOD CELL COUNT,WBC 19.5 x10-3/uL (3.2-10.1)
[2024-05-27 10:08] LABS: POTASSIUM,K 6.4 mmol/L (3.5-5.3)
[2024-05-27 10:09] LABS: CREATININE 2.3 mg/dL (0.70-1.30)
[2024-05-27 10:22] LABS: BAND PERCENT MAN 2 % (0-6); LYMPHOCYTES PERCENT MAN 2 % (13-37); MONOCYTES PERCENT MAN 4 % (4-12); SEG NEUTROPHILS PERCENT MAN 92 % (46-82)
[2024-05-27 10:23] LABS: ANISOCYTOSIS FEW
[2024-05-27] MEDS: Nicotine 14 MG/24 Hr Patch TRDERM SCH (10:34)
[2024-05-27] MEDS ORDERED: cefTRIAXone 1 GM in Sodium Chloride 0.9% 50 ML IV SCH (12:45)
[2024-05-27] MEDS: Insulin Regular, Human 100 Units/ML 10 ML Vial IV ONE (13:41)
[2024-05-27] MEDS: 50% Dextrose in Water 50 ML Syringe IVPUSH ONE (13:43)
[2024-05-27] MEDS: Azithromycin 500 MG in Sodium Chloride 0.9% 250 ML IV SCH (13:45)
[2024-05-27] MEDS: cefTRIAXone 1 GM Vial IV SCH (13:45)
[2024-05-27] MEDS: Sodium Chloride 0.9% 1,000 ML IV SCH (14:18)
[2024-05-27] MEDS: Albuterol 6.7 GM Inhaler INH PRN (14:19)
[2024-05-27 14:44] LABS: BILIRUBIN,URINE SMALL (NEGATIVE); GLUCOSE,URINE NORMAL (NORMAL); KETONES,URINE NEGATIVE (NEGATIVE); LEUKOCYTE ESTERASE,URINE NEGATIVE (NEGATIVE); NITRITE,URINE NEGATIVE (NEGATIVE); OCCULT BLOOD,URINE NEGATIVE (NEGATIVE); PROTEIN,URINE 30 mg/dL (NEGATIVE); UROBILINOGEN,URINE 4 mg/dL (NEGATIVE)
[2024-05-27 14:51] LABS: APPEARANCE,URINE CLEAR (CLEAR); BACTERIA,URINE OCCASIONAL (NS); COLOR,URINE YELLOW (YELLOW); FINE GRANULAR CASTS,URINE OCCASIONAL (NS); RBC,URINE 0-5 (0-5); SQUAMOUS EPITHELIAL CELLS,UR OCCASIONAL (NS,R,O); WBC,URINE 0-5 (0-5)
[2024-05-27 16:11] VITALS: BP 126/65; PULSE 90
[2024-05-27] MEDS ORDERED: methylPREDNISolone Sodium Succinate 125 MG/2 ML SDV IVPUSH SCH (22:00)
[2024-05-30 00:27] LABS: CREATININE,URINE - PER VOLUME 176 mg/dL; HOURS COLLECTED Random hr; TOTAL VOLUME Random mL; URINE UREA NITROGEN - MG/DL 758 mg/dL
[2024-05-30 20:56] LABS: CREATININE,URINE - PER VOLUME 176 mg/dL; HOURS COLLECTED Random hr; TOTAL VOLUME Random mL
== END 2024-05-27 15:51 | DRG 193 ==
LOC: FB.MS 12:00 → OBSVTOIN 05-27 12:00
PROVIDERS: ADMIT Family Medicine; ATTEND Internal Medicine
DX: J18.9 Pneumonia, unspecified organism (principal); J96.01 Acute respiratory failure with hypoxia; Z68.41 Body mass index [BMI] 40.0-44.9, adult; I31.39 Other pericardial effusion (noninflammatory); R04.89 Hemorrhage from other sites in respiratory passages; N17.9 Acute kidney failure, unspecified; J44.1 Chronic obstructive pulmonary disease with (acute) exacerbation; J44.0 Chronic obstructive pulmonary disease with (acute) lower respiratory infection; J44.9 Chronic obstructive pulmonary disease, unspecified; F17.210 Nicotine dependence, cigarettes, uncomplicated; E66.9 Obesity, unspecified; E11.51 Type 2 diabetes mellitus with diabetic peripheral angiopathy without gangrene; R79.89 Other specified abnormal findings of blood chemistry; E87.5 Hyperkalemia; D72.829 Elevated white blood cell count, unspecified; Z91.81 History of falling; Z79.51 Long term (current) use of inhaled steroids; Z79.82 Long term (current) use of aspirin; Z87.01 Personal history of pneumonia (recurrent); Z98.890 Other specified postprocedural states; Z79.899 Other long term (current) drug therapy
CPT/HCPCS: 36415; 80053; 81001; 82570; 82947; 83880; 84484; 84540; 85025; 87040; 93005; 93010; 93306; 94150; 94640; 96372; 96374; 96376; 99222; 99238; A9270-GY; G0378; J0456; J0696; J1650; J1815; J2919; J7030; J7050

== ENCOUNTER 2024-05-25 16:49 | Emergency (ER) | payer OTHER ==
[2024-05-25] MEDS: Sodium Chloride 0.9% 10 ML Syringe FLUSH PRN (17:10)
[2024-05-25] MEDS: methylPREDNISolone Sodium Succinate 125 MG/2 ML SDV IVPUSH ONE (17:24)
[2024-05-25] MEDS: Albuterol/Ipratropium 3.0-0.5 MG/3 ML Neb Soln NEB ONE (17:24)
[2024-05-25 17:26] LABS: HEMATOCRIT 54.1 % (38.3-50.1); HEMOGLOBIN 17.3 g/dL (12.9-17.7); MEAN CORPUSCULAR HEMOGLOBIN 30.2 pg (27.0-33.3); MEAN CORPUSCULAR VOLUME 94.5 fL (80.8-98.7); MEAN PLATELET VOLUME 8.9 fL (6.7-11.0); PLATELET COUNT,PLT 131 x10(3)uL (117-477); RED BLOOD CELL COUNT 5.73 x10(6)uL (3.90-5.90); WHITE BLOOD CELL COUNT,WBC 11.7 x10-3/uL (3.2-10.1)
[2024-05-25 17:40] LABS: BAND PERCENT MAN 3 % (0-6); LYMPHOCYTES PERCENT MAN 11 % (13-37); MONOCYTES PERCENT MAN 5 % (4-12); SEG NEUTROPHILS PERCENT MAN 81 % (46-82)
[2024-05-25] MEDS: methylPREDNISolone Sodium Succinate 125 MG/2 ML SDV IM ONE (17:41)
[2024-05-25 17:43] LABS: BLOOD UREA NITROGEN,BUN 25 mg/dL (7-18); BUN/CREATININE RATIO 13.2 (9-20); CARBON DIOXIDE,CO2 38 mmol/L (21-32); CHLORIDE,CL 100 mmol/L (100-110); CREATININE 1.9 mg/dL (0.70-1.30); ESTIMATED GFR 41 mL/min (>60); GLUCOSE RANDOM 126 mg/dL (80-116); POTASSIUM,K 4.4 mmol/L (3.5-5.3); SODIUM,NA 142 mmol/L (135-145)
[2024-05-25 17:49] LABS: A/G RATIO 0.7; ALANINE AMINOTRANSFERASE,ALT 22 U/L (12-36); ALBUMIN 3.3 g/dL (3.5-5.2); ALKALINE PHOSPHATASE 170 IU/L (56-112); ASPARTATE AMNIOTRANSFERASE,AST 16 IU/L (5-25); MAGNESIUM 1.8 mg/dL (1.8-2.5); PROTEIN TOTAL,TP 7.8 g/dL (6.0-8.0)
[2024-05-25 17:51] LABS: C-REACTIVE PROTEIN 1.37 mg/dL (<0.50); TROPONIN I 14.9 pg/mL (4.0-60.3)
[2024-05-25] MEDS: cefTRIAXone 1 GM Vial IVPUSH ONE (18:04)
[2024-05-25] MEDS ORDERED: 50% Dextrose in Water 50 ML Syringe IVPUSH PRN (20:06)
[2024-05-25] MEDS ORDERED: Glucagon,Human Recombinant 1 MG Vial IM PRN (20:06)
[2024-05-25] MEDS ORDERED: methylPREDNISolone Sodium Succinate 125 MG/2 ML SDV IVPUSH SCH (20:15)
[2024-05-25] MEDS ORDERED: Enoxaparin 30 MG/0.3 ML Syringe SUBCUT SCH (20:15)
[2024-05-25] MEDS ORDERED: Enoxaparin 40 MG/0.4 ML Syringe SUBCUT SCH (21:00)
[2024-05-25] MEDS ORDERED: Albuterol/Ipratropium 3.0-0.5 MG/3 ML Neb Soln NEB SCH (21:00)
[2024-05-25 21:05] VITALS: BP 141/85; PULSE 104
[2024-05-26] MEDS ORDERED: Pantoprazole 40 MG Tab.CR PO SCH (07:30)
[2024-05-26] MEDS ORDERED: Insulin Lispro 100 Unit/ML 3 ML KwikPen SUBCUT SCH (08:00)
[2024-05-26] MEDS ORDERED: Non-Formulary Medication 1 Each (Umeclidinium Brm/Vilanterol Tr [Anoro Ellipta 62.5-25 Mcg IH SCH (09:00)
[2024-05-26] MEDS ORDERED: Potassium Chloride 20 MEQ Tab.ER PO SCH (09:00)
[2024-05-26] MEDS ORDERED: Aspirin 81 MG Tab.EC PO SCH (09:00)
[2024-05-26] MEDS ORDERED: glipiZIDE 5 MG Tab PO SCH (09:00)
[2024-05-26] MEDS ORDERED: Metoprolol Succinate 100 MG Tab.ER PO SCH (09:00)
[2024-05-26] MEDS ORDERED: Non-Formulary Medication 1 Each (Omeprazole [Omeprazole] 20 MG Capsule.Dr) PO SCH (09:00)
[2024-05-26] MEDS ORDERED: Cholecalciferol (Vitamin D3) 25 MCG Tab PO SCH (09:00)
[2024-05-26] MEDS ORDERED: Spironolactone 50 MG Tab PO SCH (09:00)
== END 2024-05-25 21:10 | disposition left against medical advice (07) ==
LOC: FB.ED 16:49 → FB.MS 22:08 → UNDOADMOB 22:08
DX: S22.41XA Multiple fractures of ribs, right side, initial encounter for closed fracture (principal); S27.0XXA Traumatic pneumothorax, initial encounter; I31.39 Other pericardial effusion (noninflammatory); J44.1 Chronic obstructive pulmonary disease with (acute) exacerbation; E66.9 Obesity, unspecified; I12.9 Hypertensive chronic kidney disease with stage 1 through stage 4 chronic kidney disease, or unspecified chronic kidney disease; N18.9 Chronic kidney disease, unspecified; F17.200 Nicotine dependence, unspecified, uncomplicated; Z68.41 Body mass index [BMI] 40.0-44.9, adult; Z79.82 Long term (current) use of aspirin; Z79.899 Other long term (current) drug therapy; W01.198A Fall on same level from slipping, tripping and stumbling with subsequent striking against other object, initial encounter; Y93.89 Activity, other specified
CPT/HCPCS: 36415; 71046; 71250; 80053; 83735; 83880; 84484; 85025; 86140; 87428-QW; 93005; 93010; 94640; 99284; A9270-GY; J0696; J2919

== ENCOUNTER 2024-07-08 13:38 | Emergency (ER) | payer OTHER ==
[2024-07-08 14:35] LABS: HEMOGLOBIN 12.4 g/dL (12.9-17.7); MEAN CORPUSCULAR HEMOGLOBIN 29.4 pg (27.0-33.3); MEAN CORPUSCULAR HGB CONC 32.7 g/dL (28.7-35.3); MEAN CORPUSCULAR VOLUME 89.8 fL (80.8-98.7); MEAN PLATELET VOLUME 7.6 fL (6.7-11.0); PLATELET COUNT,PLT 261 x10(3)uL (117-477); RED BLOOD CELL COUNT 4.23 x10(6)uL (3.90-5.90); RED CELL DISTRIBUTION WIDTH 15.8 % (12.4-15.0); WHITE BLOOD CELL COUNT,WBC 14.7 x10-3/uL (3.2-10.1)
[2024-07-08 14:44] LABS: A/G RATIO 0.5; ALANINE AMINOTRANSFERASE,ALT 22 U/L (12-36); ALBUMIN 2.9 g/dL (3.5-5.2); ALKALINE PHOSPHATASE 258 IU/L (56-112); ASPARTATE AMNIOTRANSFERASE,AST 16 IU/L (5-25); BILIRUBIN TOTAL 0.6 mg/dL (0.1-1.3); BLOOD UREA NITROGEN,BUN 24 mg/dL (7-18); CALCIUM 9.5 mg/dL (8.6-10.2); CARBON DIOXIDE,CO2 36 mmol/L (21-32); CHLORIDE,CL 100 mmol/L (100-110); EST CRCL DRUG DOSING (CG) 40.75 mL/min; ESTIMATED GFR 38 mL/min (>60); GLUCOSE RANDOM 166 mg/dL (80-116); POTASSIUM,K 4.6 mmol/L (3.5-5.3); SODIUM,NA 141 mmol/L (135-145)
[2024-07-08 14:50] LABS: TROPONIN I 4.6 pg/mL (4.0-60.3)
[2024-07-08 15:12] LABS: BAND PERCENT MAN 3 % (0-6); LYMPHOCYTES PERCENT MAN 14 % (13-37); MONOCYTES PERCENT MAN 5 % (4-12); SEG NEUTROPHILS PERCENT MAN 78 % (46-82)
[2024-07-08] MEDS: Albuterol/Ipratropium 3.0-0.5 MG/3 ML Neb Soln NEB ONE (15:32)
[2024-07-08] MEDS: methylPREDNISolone Sodium Succinate 125 MG/2 ML SDV IVPUSH ONE (15:33)
[2024-07-08] MEDS: Sodium Chloride 0.9% 10 ML Syringe FLUSH PRN (15:34)
[2024-07-08 16:08] VITALS: BP 127/91; PULSE 116
== END 2024-07-08 16:00 | disposition home or self-care (01) ==
LOC: FB.ED 13:38
DX: J44.1 Chronic obstructive pulmonary disease with (acute) exacerbation (principal); I12.9 Hypertensive chronic kidney disease with stage 1 through stage 4 chronic kidney disease, or unspecified chronic kidney disease; N18.9 Chronic kidney disease, unspecified; E11.22 Type 2 diabetes mellitus with diabetic chronic kidney disease; E66.9 Obesity, unspecified; F17.210 Nicotine dependence, cigarettes, uncomplicated; Z79.899 Other long term (current) drug therapy
CPT/HCPCS: 36415; 71045; 80053; 83880; 84484; 85025; 87428; 93010; 96374; 99284; J2919; J7620; A9270-GY